=== PATIENT | female | born 2000 | race American Indian/Alaskan Native ===

== ENCOUNTER 2018-08-30 21:36 | Emergency (ER) | payer MEDICAID, SELFPAY ==
[2018-08-30 21:49] VITALS: BP 111/67; PULSE 89; RESP 20; TEMP 37.1; O2SAT 98; BMI 26.9
--- NOTE | 2018-08-30 21:55 | DI.RAD.S_ITS ---
PROCEDURE: XR WRIST LT MIN 3V INDICATIONS: left wrist pain TECHNIQUE: 4 views of the wrist were acquired. COMPARISON: None. FINDINGS: Bones: No fractures or dislocations. No suspicious bony lesions. Scaphoid view: Scaphoid is intact. Soft tissues: No suspicious soft tissue calcifications. IMPRESSION: No fracture or dislocation. Dictated by: Johnna Dominguez M.D. on 08/31/2018 at 9:47 Approved by: Johnna Dominguez M.D. on 08/31/2018 at 9:48
--- NOTE | 2018-08-30 23:03 | ED.UPPEXIN ---
HPI - Extremity Injury (Upper) General Chief Complaint: Extremity Injury, Upper Stated Complaint: LEFT WRIST INJURY Time Seen by Provider: 08/30/18 22:58 Source: patient Mode of arrival: ambulatory Limitations: no limitations History of Present Illness HPI narrative: patient is a 18-year-old female who presents with left wrist pain. She has numbness and tingling in her index and middle finger. She says 2 weeks ago she was lifting a table it fell she tried to catch it and since then she has been having pain. It hurts every time she flex or extend at the wrist. Mostly flexion. complaint: injury to: left and wrist Related Data Allergies Allergy/AdvReac Type Severity Reaction Status Date / Time INGREDIENT: NO KNOWN - NO Allergy Unknown Uncoded 11/18/17 11:45 KNOWN DRUG ALLERGY Review of Systems Review of Systems GENERAL: Denies chills,fever HEENT: Denies throat pain RESPIRATORY: Denies dyspnea, cough, wheezing CARDIOVASCULAR: Denies chest pain, palpitations GASTROINTESTINAL: Denies nausea, vomiting MUSCULOSKELETAL: See HPI SKIN: No rash, no laceration, no pruritus NEUROLOGIC: Denies weakness, dizziness, headache, numbness 8 point review of systems is negative except for those stated above and HPI [facility] Medical History Healthy female (Acute) Social History Smoking Status: Never smoker Exam Initial Vital Signs Initial Vital Signs: Vital Signs Temperature 98.7 F 08/30/18 21:49 Pulse Rate 89 08/30/18 21:49 Respiratory Rate 20 08/30/18 21:49 Blood Pressure 111/67 08/30/18 21:49 Pulse Oximetry 98 08/30/18 21:49 GENERAL: Well-appearing, well-nourished and in no acute distress. CARDIOVASCULAR: peripheral pulses in tact, cap refill <2 sec RESPIRATORY: No respiratory distress, speaks in full sentences without difficulty EXTREMITIES: Normal range of motion, no clubbing or edema. Neurovascularly intact left wrist: Has a positive Phalen's and Tinel's sign. His mild swelling no erythema neurovascularly intact NEUROLOGICAL: Cranial nerves II through XII grossly intact. Normal gait and speech. SKIN: Warm, dry, no petechiae, no rashes or lesions. Course Orders Ordered: ED Orders 08/30/18 21:55 XR wrist LT min 3V Stat Vital Signs - 8 hr 08/30/18 21:49 08/30/18 23:24 Temperature 98.7 F 98.3 F Pulse Rate 89 80 Respiratory Rate 20 16 Blood Pressure 111/67 Blood Pressure [Left Arm] 107/64 Pulse Oximetry 98 100 MDM - Extremity Injury (Upper) Imaging Data wrist left: Attestation: I personally reviewed and interpreted this imaging study as follows: My impression: the no acute process MDM Narrative Medical decision making narrative: Patient is given a left Velcro wrist splint. The signs and symptoms consistent carpal tunnel. Discharge Plan Departure Patient Disposition: Home Clinical Impression: Acute carpal tunnel syndrome of left wrist Discharge Date/Time: 08/30/18 23:32 Interventions: ED Discharge Assessment Last Done: 08/30/18 23:32 Instructions: Carpal Tunnel Syndrome Activity Restrictions/Additional Instructions: *You have been diagnosed with carpal tunnel *What to do: wear a wrist splint while active and while sleeping *Continue to take medications as directed ibuprofen 600 mg every 6 hr if needed for pain *Follow up with your primary care provider in 2-3 days *Return to ER if you should have weakness, increased pain or any new, worsening or concerning symptoms
[2018-08-30 23:24] VITALS: BP 107/64; PULSE 80; RESP 16; TEMP 36.8; O2SAT 100
== END 2018-08-30 23:32 | disposition home or self-care (01) ==
PROVIDERS: Emergency Provider Emergency Medicine; Family Provider Family Medicine; PCP Family Medicine
DX: G56.02 Carpal tunnel syndrome, left upper limb (principal)
CPT/HCPCS: 29260; 73110; 99282; 99283

== ENCOUNTER → 2022-10-14 18:29 | Outpatient (CLI) | payer MEDICAID, SELFPAY ==
--- NOTE | 2022-10-14 18:32 | DI.RAD.S_ITS ---
PROCEDURE: XR HAND LT MIN 3V INDICATIONS: Left hand pain TECHNIQUE: 3 views of the hand(s) acquired. COMPARISON: None. FINDINGS: Joint space maintained. No degenerative arthritic features. No fracture or dislocation. Soft tissues normal. IMPRESSION: No acute finding or significant degenerative changes. Dictated by: Minh Howell M.D. on 10/15/2022 at 11:30 Approved by: Minh Howell M.D. on 10/15/2022 at 11:31
== END ==
PROVIDERS: PCP Registered Nurse; Referring Provider Registered Nurse; Visit Provider Registered Nurse
DX: M79.642 Pain in left hand (principal)
CPT/HCPCS: 73130

== ENCOUNTER 2023-06-30 15:43 | Emergency (ER) | payer MEDICAID, SELFPAY ==
[2023-06-30 16:11] VITALS: BP 124/59; PULSE 96; RESP 16; TEMP 37.4; O2SAT 99; BMI 30.1
== END 2023-06-30 18:52 | disposition left against medical advice (07) ==
PROVIDERS: Emergency Provider Emergency Medicine; PCP Registered Nurse
DX: H66.92 Otitis media, unspecified, left ear (principal)
CPT/HCPCS: 99281

== ENCOUNTER 2024-03-26 00:52 | Emergency (ER) | payer MEDICAID, SELFPAY ==
[2024-03-26 01:04] VITALS: BP 123/64; PULSE 98; RESP 18; TEMP 36.7; O2SAT 98; BMI 30.1
[2024-03-26] MEDS: DEXAMETHASONE 10 MG/ML VIAL PO (01:25)
[2024-03-26 01:34] LABS: Strep Grp A by PCR Rapid Negative (Negative)
[2024-03-26] MEDS: ONDANSETRON 4 MG/2 ML INJ IV (02:17)
[2024-03-26] MEDS: SODIUM CHLORIDE 0.9% 1,000 ML 1000 ML IV (02:17)
[2024-03-26] MEDS: HYDROMORPHONE 0.5 MG INJ IV (02:17)
[2024-03-26 02:19] LABS: Add Manual Diff / Slide Review NO; Basophils Absolute Auto 0 /uL (0-100); Basophils Percent Auto 0.3 % (0-2); Eosinophils Absolute Auto 200 /uL (0-450); Eosinophils Percent Auto 2.1 % (2-4); Hematocrit 38.2 % (36-46); Hemoglobin 12.7 g/dL (12.0-16.0); Lymphocytes Absolute Auto 1500 /uL (1100-4500); Lymphocytes Percent Auto 14.6 % (25-40); Mean Corpuscular HGB Conc 33.2 % (30-36); Mean Corpuscular Hemoglobin 25.7 PG (26-34); Mean Corpuscular Volume 77.3 fL (80-100); Monocytes Absolute Auto 800 /uL (0-900); Neutrophils Absolute Auto 7400 /uL (1500-7000); Platelet Count 340 X10^3/uL (150-400); Red Blood Cell Count 4.95 X10^6/uL (4.0-5.2); Red Cell Distribution Width 14.9 % (11.6-14.8); White Blood Cell Count 9.9 X10^3/uL (4.5-11.0)
[2024-03-26 02:21] LABS: Monotest Negative (Negative)
[2024-03-26 02:30] LABS: Alanine Aminotransferase 21 IU/L (<35); Albumin Globulin Ratio 1.1 (1.0-2.8); Alkaline Phosphatase 58 U/L (38-126); Aspartate Aminotransferase 25 IU/L (14-36); BUN Creatinine Ratio 15.4 (6-22); Bilirubin Total 0.4 mg/dL (0.2-1.3); Blood Urea Nitrogen 10 mg/dL (7-17); Calcium 8.6 mg/dL (8.4-10.2); Carbon Dioxide 25 mmol/L (22-32); Chloride 105 mmol/L (98-107); Estimated Glomerular Filt Rate > 60 mL/min (>60); Globulin 3.6 g/dL (1.7-4.1); Glucose 118 mg/dL (70-100); HEMOLYSIS < 15 (0-50); Potassium 3.6 mmol/L (3.4-5.1); Sodium 137 mmol/L (137-145); Total Protein 7.6 g/dL (6.3-8.2)
[2024-03-26 03:12] VITALS: PULSE 84; O2SAT 96
--- NOTE | 2024-03-26 03:17 | ED.GENADULT ---
HPI - General Adult General Chief complaint: Dental/Oral Stated complaint: SWOLLEN TONSILS, VERY PAINFUL Time Seen by Provider: 03/26/24 01:03 Source: patient Mode of arrival: Ambulatory History of Present Illness HPI narrative: Otherwise healthy 23-year-old woman with no significant medical history presents complaining of severe throat pain present for 48 hours over the last 24 hours so bad that she is having difficulty swallowing. She is maintaining her airway. Slight headaches, nausea no diarrhea. No chest pain, palpitations. Related Data Home Medications Medication Instructions Recorded Confirmed No Known Home Medications 06/30/23 06/30/23 Allergies Allergy/AdvReac Type Severity Reaction Status Date / Time No Known Drug Allergies Allergy Verified 06/30/23 16:14 Review of Systems Review of Systems Narrative: Pertinent positive and negative findings as per HPI Patient History Medical History Healthy female Social History Smoking Status: Never smoker Smoking Status: Never smoker alcohol intake frequency: 0-2 drinks per day Substance Use Type: does not use Exam Initial Vital Signs Initial Vital Signs: Vital Signs Temperature 98.1 F 03/26/24 01:04 Pulse Rate 98 H 03/26/24 01:04 Respiratory Rate 18 03/26/24 01:04 Blood Pressure 123/64 03/26/24 01:04 Pulse Oximetry 98 03/26/24 01:04 Oxygen Delivery Method Room Air 03/26/24 01:04 General: Appears uncomfortable, alert, oriented, appropriate and able to come platelet cooperate with exam and history HEENT: Moist mucous membranes, normal sclera with reactive pupils, significantly enlarged erythematous tonsils with minor exudate. Significant bilateral cervical adenopathy. Throat is quite hoarse Respiratory: Lungs are clear to auscultation, no wheezing no rales no rhonchi. Full and symmetrical air movement Cardiac: Mild tachycardic otherwise Regular rate and rhythm no murmurs no bruits Abdomen: Soft, mild mid abdominal tenderness without rebound or guarding. No flank pain Skin: Warm and dry, no rashes Neurologic: Grossly neurologically intact with no obvious asymmetries or abnormalities Extremities: No trauma, well perfused Psych: Cooperative, appropriate insight and affect Course Orders Ordered: ED Orders 03/26/24 01:21 Strep Grp A by PCR Rapid Stat 03/26/24 02:10 Complete Blood Count AUTO DIFF Stat Comprehensive Metabolic Panel Stat Monotest Stat Hydromorphone HCl (Hydromorphone 0.5 Mg Inj) 0.5 mg IV Q15MIN PRN PRN Reason: Pain, Last Admin: 03/26/24 02:17 Dose: 0.5 mg Documented By: MARK Discontinued Medications Dexamethasone (Dexamethasone 10 Mg/Ml Vial) 10 mg PO NOW ONE Stop: 03/26/24 01:18 Last Admin: 03/26/24 01:25 Dose: 10 mg Documented By: ENEIDA Sodium Chloride (Normal Saline 0.9%) 1,000 mls @ 1,000 mls/hr IV BOLUS ONE Stop: 03/26/24 02:54 Last Admin: 03/26/24 02:17 Dose: 1,000 mls/hr Documented By: MARK Ondansetron HCl (Ondansetron 4 Mg/2 Ml Inj) 4 mg IV NOW ONE Stop: 03/26/24 01:56 Last Admin: 03/26/24 02:17 Dose: 4 mg Documented By: MARK Vital Signs Vital signs: Vital Signs - 8 hr 03/26/24 01:04 Temperature 98.1 F Pulse Rate 98 H Respiratory Rate 18 Blood Pressure 123/64 Pulse Oximetry 98 Oxygen Delivery Method Room Air Medical Decision Making Lab Data 03/26/24 02:10 03/26/24 02:10 Labs: Lab Results 03/26/24 03/26/24 Range/Units 01:21 02:10 WBC 9.9 (4.5-11.0) X10^3/uL RBC 4.95 (4.0-5.2) X10^6/uL Hgb 12.7 (12.0-16.0) g/dL Hct 38.2 (36-46) % MCV 77.3 L (80-100) fL MCH 25.7 L (26-34) PG MCHC 33.2 (30-36) % RDW 14.9 H (11.6-14.8) % Plt Count 340 (150-400) X10^3/uL Neut % (Auto) 75.0 (50-75) % Lymph % (Auto) 14.6 L (25-40) % [place] % (Auto) 8.0 (3-14) % Eos % (Auto) 2.1 (2-4) % Baso % (Auto) 0.3 (0-2) % Neut # (Auto) 7400 H (4917-5925) /uL Lymph # (Auto) 1500 (2019-4221) /uL [place] # (Auto) 800 (0-900) /uL Eos # (Auto) 200 (0-450) /uL Baso # (Auto) 0 (0-100) /uL Sodium 137 (137-145) mmol/L Potassium 3.6 (3.4-5.1) mmol/L Chloride 105 (98-107) mmol/L Carbon Dioxide 25 (22-32) mmol/L BUN 10 (7-17) mg/dL Creatinine 0.65 (0.52-1.04) mg/dL Estimated GFR > 60 (>60) mL/min BUN/Creatinine Ratio 15.4 (6-22) Glucose 118 H (70-100) mg/dL Calcium 8.6 (8.4-10.2) mg/dL Total Bilirubin 0.4 (0.2-1.3) mg/dL AST 25 (14-36) IU/L ALT 21 (<35) IU/L Alkaline Phosphatase 58 (38-126) U/L Total Protein 7.6 (6.3-8.2) g/dL Albumin 4.0 (3.5-5.0) g/dL Globulin 3.6 (1.7-4.1) g/dL Albumin/Globulin Ratio 1.1 (1.0-2.8) Monoscreen Negative (Negative) Group A Strep (PCR) Negative (Negative) MDM Narrative Medical decision making narrative: CC: Severe sore throat Complicating co-morbidities: None Data collected from: patient Differential considered: Strep throat, mono, other viral syndrome with upper pharyngeal symptoms Exam documented above, pertinent findings include: Significantly enlarged tonsils minor exudate, impressive cervical adenopathy, hoarse voice, lungs are essentially clear abdomen with minor tenderness without rebound or guarding Lab Test results independently reviewed as above. Pertinent findings: CBC is unremarkable with no suggestion of severe bacterial infection. Chemistries are reassuring, normal renal function, normal liver studies Strep screen is negative, Monospot is negative Treatments: Fluids, oral dexamethasone for inflammation and pain, Zofran, half a mg of Dilaudid, a single Percocet Discussion: 23-year-old woman with significant presumably viral pharyngitis. No evidence of bacterial infection. Antibiotics were not administered. No evidence peritonsillar abscess. She has given a dose of dexamethasone to help with swelling and pain. The fluids nausea medication and Dilaudid did help some with the pain, she is able to swallow. She has given a Percocet prior to discharge and Percocet discharge back to help over the next 24 hours. We talked about ibuprofen and Tylenol. Talked about symptomatic treatment for viral infections and reasons to return to the emergency department. At this point there is no indication for additional imaging studies, lab work or hospitalization. Questions are answered she is safe for discharge Discharge Plan Departure Patient Disposition: Home Clinical Impression: Acute viral pharyngitis Instructions: DI for Viral Pharyngitis Activity Restrictions/Additional Instructions: Thank you for coming in today You do not have strep throat, there was no evidence of significant bacterial infection or sepsis, antibiotics are not going to be helpful today. You do clearly have a significant viral infection that is causing rather impressive swelling of your tonsils with swollen lymph nodes trying to fight off this virus. I have given you fluids, a dose of steroid to help with the tonsillar pain and swelling, narcotic pain medication to help with the direct pain and nausea medication as well. Using 400 mg of ibuprofen (2 [id number] pills) and 1 Tylenol every 6 hours can be very helpful in controlling pain. For severe pain using 400 mg of ibuprofen and 1 Percocet can be helpful. Percocet is a narcotic and will cause constipation. Please consider using a stool softener and making sure that you are staying as hydrated as possible If you find that you are getting worse or having new symptoms please return to the ER Prescriptions: No Action No Known Home Medications Referrals: Stephani Porter ARNP [Primary Care Provider] - Stand Alone Forms: Patient Portal/API
[2024-03-26 03:30] VITALS: PULSE 87; O2SAT 96
[2024-03-26] MEDS: OXYCODONE/APAP 5/325 PREPACK 1 BOTTLE MISC (03:44)
[2024-03-26] MEDS: OXYCODONE/ACETAMINOPHEN 5/325 TABLET 1 TAB PO (03:44)
[2024-03-26 03:51] VITALS: BP 124/60
== END 2024-03-26 03:52 | disposition home or self-care (01) ==
PROVIDERS: Emergency Provider Emergency Medicine; PCP Registered Nurse
DX: J02.9 Acute pharyngitis, unspecified (principal)
CPT/HCPCS: 36415; 80053; 85025; 86318; 87651; 96361; 96374; 96375; 99284; J1100; J1170; J2405

== ENCOUNTER 2024-03-27 17:55 | Emergency (ER) | payer SELFPAY ==
[2024-03-27] VITALS (8 sets, daily range): BP systolic 109–123; BP diastolic 57–75; PULSE 81–101; RESP 14–21; TEMP 37.3; O2SAT 97–100; BMI 30.1
--- NOTE | 2024-03-27 18:48 | ED.RECABL ---
HPI - Recheck/Abnormal Lab/Rx General Chief Complaint: Recheck/Abnormal Lab/Rx Stated Complaint: Returning; Swollen Tonsils, Not eating Time Seen by Provider: 03/27/24 18:48 Source: patient Mode of arrival: Ambulatory History of Present Illness HPI narrative: Patient is a 23-year-old healthy female who presents today with sore throat. She has had a sore throat for the last 3 to 4 days. She was seen evaluated clinic her rapid strep was negative they did not start her on any sort of antibiotics. Today she feels like her voice is muffled and she has having a difficult time swallowing although she is currently managing her own secretions. No fever or chills. She says it hurts to swallow has not taken anything for pain recently Related Data Previous Rx's Medication Instructions Recorded amoxicillin 875 mg-potassium 1 tab PO BID #20 tabs 03/27/24 clavulanate 125 mg tablet prednisone 20 mg tablet 40 mg (2 x 20 mg) PO DAILY #10 tabs 03/27/24 Allergies Allergy/AdvReac Type Severity Reaction Status Date / Time No Known Drug Allergies Allergy Verified 06/30/23 16:14 Patient History Medical History Healthy female Social History Smoking Status: Never smoker Smoking Status: Never smoker alcohol intake frequency: 0-2 drinks per day Substance Use Type: does not use Exam Initial Vital Signs Initial Vital Signs: Vital Signs Temperature 99.2 F 03/27/24 18:25 Pulse Rate 101 H 03/27/24 18:25 Respiratory Rate 16 03/27/24 18:25 Blood Pressure 123/57 L 03/27/24 18:25 Pulse Oximetry 98 03/27/24 18:25 Oxygen Delivery Method Room Air 03/27/24 18:25 GENERAL: Alert pleasant 23-year-old female and in no acute distress. HEENT: Head atraumatic,EOMI, pupils reactive, face symmetric, moist mucous membranes PHARYNX: Right hard palate swelling significantly enlarged tonsils no significant deviation of uvula she is managing her own secretions she does have a slightly muffled voice CARDIOVASCULAR: Regular rate and rhythm without murmurs, rubs or gallops. RESPIRATORY: Breath sounds equal bilaterally, no wheezes rales or rhonchi. No stridor ABDOMEN: Soft, nontender. Normoactive bowel sounds all 4 quadrants. No guarding or rebound. EXTREMITIES: Normal range of motion, no clubbing or edema. Neurovascularly intact NEUROLOGICAL: Alert and oriented x4.Normal gait and speech. SKIN: Warm, dry, no laceration, no petechiae, no rashes or lesions. Course Orders Ordered: ED Orders 03/27/24 19:05 Blood Culture Stat Discontinued Medications Sodium Chloride (Normal Saline 0.9%) 1,000 mls @ 1,000 mls/hr IV BOLUS ONE Stop: 03/27/24 19:32 Last Infusion: 03/27/24 20:59 Dose: Infused Documented By: Admin: 03/27/24 19:09 Dose: 1,000 mls/hr Documented By: VIPIN Sodium Chloride (Normal Saline 0.9%) 1,000 mls @ 1,000 mls/hr IV BOLUS ONE Stop: 03/27/24 19:47 Last Infusion: 03/27/24 21:34 Dose: Infused Documented By: Admin: 03/27/24 20:18 Dose: 1,000 mls/hr Documented By: MARK Ampicillin Sodium/Sulbactam (Sodium 3 gm/ Sodium Chloride) 100 mls @ 200 mls/hr IV NOW ONE Stop: 03/27/24 18:49 Last Infusion: 03/27/24 20:16 Dose: Infused Documented By: Admin: 03/27/24 19:31 Dose: 200 mls/hr Documented By: VIPIN Dexamethasone 20 mg/ Sodium (Chloride) 52 mls @ 208 mls/hr IV NOW ONE Stop: 03/27/24 18:49 Last Infusion: 03/27/24 19:30 Dose: Infused Documented By: Admin: 03/27/24 19:11 Dose: 208 mls/hr Documented By: VIPIN Acetaminophen (Ofirmev) 1,000 mg in 100 mls @ 400 mls/hr IV NOW ONE Stop: 03/27/24 19:10 Last Infusion: 03/27/24 20:46 Dose: Infused Documented By: Admin: 03/27/24 20:17 Dose: 400 mls/hr Documented By: MARK Ondansetron HCl (Ondansetron 4 Mg/2 Ml Inj) 4 mg IV NOW PRN PRN Reason: Nausea And Vomiting Last Admin: 03/27/24 19:09 Dose: 4 mg Documented By: RB Ondansetron HCl (Ondansetron 4 Mg Odt) 4 mg SL NOW PRN PRN Reason: Nausea And Vomiting Vital Signs Vital signs: Vital Signs - 8 hr 03/27/24 20:30 03/27/24 20:30 03/27/24 21:00 Pulse Rate 81 86 Respiratory Rate 17 21 Blood Pressure 109/63 Pulse Oximetry 99 97 Oxygen Delivery Method Room Air 03/27/24 21:00 03/27/24 22:04 03/27/24 22:14 Pulse Rate 85 100 H Respiratory Rate 18 14 Blood Pressure 117/71 109/74 115/75 Pulse Oximetry 97 100 Oxygen Delivery Method Room Air Room Air MDM - Recheck/Abnormal Lab/Rx Lab Data 03/27/24 18:45 03/27/24 18:45 Labs: Lab Results 03/27/24 03/27/24 Range/Units 18:45 18:49 WBC 13.6 H (4.5-11.0) X10^3/uL RBC 4.87 (4.0-5.2) X10^6/uL Hgb 12.5 (12.0-16.0) g/dL Hct 37.8 (36-46) % MCV 77.7 L (80-100) fL MCH 25.8 L (26-34) PG MCHC 33.2 (30-36) % RDW 15.0 H (11.6-14.8) % Plt Count 332 (150-400) X10^3/uL Neut % (Auto) 76.7 H (50-75) % Lymph % (Auto) 13.5 L (25-40) % [place] % (Auto) 8.7 (3-14) % Eos % (Auto) 0.2 L (2-4) % Baso % (Auto) 0.9 (0-2) % Neut # (Auto) 45773 H (4323-6764) /uL Lymph # (Auto) 1800 (1080-8852) /uL [place] # (Auto) 1200 H (0-900) /uL Eos # (Auto) 0 (0-450) /uL Baso # (Auto) 100 (0-100) /uL PT 12.5 (9.4-12.5) SECONDS INR 1.1 (0.9-1.3) APTT 33 (25.1-36.5) SECONDS Sodium 138 (137-145) mmol/L Potassium 3.5 (3.4-5.1) mmol/L Chloride 105 (98-107) mmol/L Carbon Dioxide 25 (22-32) mmol/L BUN 9 (7-17) mg/dL Creatinine 0.64 (0.52-1.04) mg/dL Estimated GFR > 60 (>60) mL/min BUN/Creatinine Ratio 14.1 (6-22) Glucose 97 (70-100) mg/dL Lactate 0.9 (0.7-2.1) mmol/L Calcium 8.5 (8.4-10.2) mg/dL Total Bilirubin 0.7 (0.2-1.3) mg/dL AST 20 (14-36) IU/L ALT 19 (<35) IU/L Alkaline Phosphatase 68 (38-126) U/L Total Protein 7.6 (6.3-8.2) g/dL Albumin 4.1 (3.5-5.0) g/dL Globulin 3.5 (1.7-4.1) g/dL Albumin/Globulin Ratio 1.2 (1.0-2.8) Lipase 54 (23-300) U/L Procalcitonin 0.052 (<0.5) ng/mL Ur Bilirubin Confirm Negative (Negative) Urine RBC 1-5/hpf (0-5/HPF) Urine WBC 5-10/hpf H (0-5/HPF) Ur Squamous Epith Cells 10-30 /hpf H (0-5/HPF) Amorphous Sediment 1+ Urine Bacteria Few (2-10) H (None) Ur Culture Indicated? Specimen cultured Vol Urine Centrifuged 6 Point of Care Testing Test Results Negative Urine Dip Bedside Urine Glucose Negative Bedside Urine Bilirubin + 1 Bedside Urine Ketone ++ 40 Urine Specific [place] 1.015 Bedside Urine Occult Blood +/- Bedside Urine pH 6.0 Bedside Urine Protein - Negative Bedside Urine Urobilinogen +/- 1mg Bedside Urine Nitrite - Negative Bedside Urine Leukocytes - Negative Esterase MAKAYLA Narrative Medical decision making narrative: MAKAYLA CC: Sore throat difficulty swallowing Complicating co-morbidities: Healthy non Medical records reviewed: None Differential considered: Peritonsillar abscess, retropharyngeal abscess stress Exam documented above, pertinent findings include: Enlarged tonsils some right peritonsillar swelling no obvious uvular deviation Lab Test results independently reviewed as above. Pertinent findings: Negative strep negative mono WBC 13.6 hemoglobin 12.5 hematocrit 37.8 platelets 332 Sodium 138 potassium 3.5 chloride 105 carbon dioxide 25 BUN 9 creatinine 0.6 glucose 97 lactate 0.9 bili 0.7 AST 20 ALT 19 procalcitonin 0.5 Imaging studies independently reviewed: None Consultations: none Treatments: 2 L of IV fluids dexamethasone Unasyn Re-evaluations: Patient is resting comfortably managing own secretions no acute airway compromise Discussion: Patient presents with sore throat ongoing for last couple of days muffled voice concern for peritonsillar abscess. She is managing her secretions strep is negative but is treated with Unasyn regardless. She is able to lay flat overall appears comfortable. Encouraged hydration and steroid it is along with the ENT follow-up Discharge Plan Departure Patient Disposition: Home Clinical Impression: Abscess, peritonsillar Instructions: DI for Peritonsillar Abscess -- Adult Activity Restrictions/Additional Instructions: *You have been diagnosed with peritonsillar abscess *What to do: At this time please stay hydrated drink fluids *Continue to take medications as directed--> [facility] Prednisone 40 mg once a day for 5 days Augmentin 875 mg twice a day for 10 days *Follow up with your primary care provider in 2-3 days or call [phone] *Return to ER if you should have increasing pain swelling difficulty swallowing or any new, worsening or concerning symptoms Prescriptions: New prednisone 20 mg tablet 40 mg PO DAILY Qty: 10 0RF amoxicillin-pot clavulanate 875-125 mg tablet 1 tab PO BID Qty: 20 0RF Referrals: Erasmo Irizarry MD [Physician] - Stephani Porter ARNP [Primary Care Provider] - Stand Alone Forms: Patient Portal/API, Work Release Note
[2024-03-27 18:56] LABS: Add Manual Diff / Slide Review NO; Basophils Absolute Auto 100 /uL (0-100); Basophils Percent Auto 0.9 % (0-2); Eosinophils Absolute Auto 0 /uL (0-450); Eosinophils Percent Auto 0.2 % (2-4); Hematocrit 37.8 % (36-46); Hemoglobin 12.5 g/dL (12.0-16.0); Lymphocytes Absolute Auto 1800 /uL (1100-4500); Lymphocytes Percent Auto 13.5 % (25-40); Mean Corpuscular HGB Conc 33.2 % (30-36); Mean Corpuscular Hemoglobin 25.8 PG (26-34); Mean Corpuscular Volume 77.7 fL (80-100); Monocytes Absolute Auto 1200 /uL (0-900); Monocytes Percent Auto 8.7 % (3-14); Neutrophils Absolute Auto 10500 /uL (1500-7000); Neutrophils Percent Auto 76.7 % (50-75); Platelet Count 332 X10^3/uL (150-400); Red Blood Cell Count 4.87 X10^6/uL (4.0-5.2); White Blood Cell Count 13.6 X10^3/uL (4.5-11.0)
[2024-03-27 19:04] LABS: INR 1.1 (0.9-1.3); Prothrombin Time 12.5 SECONDS (9.4-12.5)
[2024-03-27 19:07] LABS: PTT Partial Thromboplastin Tim 33 SECONDS (25.1-36.5)
[2024-03-27 19:08] LABS: Lactate (Lactic Acid) 0.9 mmol/L (0.7-2.1)
[2024-03-27] MEDS: ONDANSETRON 4 MG/2 ML INJ IV (19:09)
[2024-03-27] MEDS: SODIUM CHLORIDE 0.9% 1,000 ML 1000 ML IV ×2 (19:09→20:18)
[2024-03-27 19:10] LABS: Alanine Aminotransferase 19 IU/L (<35); Albumin 4.1 g/dL (3.5-5.0); Albumin Globulin Ratio 1.2 (1.0-2.8); Alkaline Phosphatase 68 U/L (38-126); Aspartate Aminotransferase 20 IU/L (14-36); BUN Creatinine Ratio 14.1 (6-22); Bilirubin Total 0.7 mg/dL (0.2-1.3); Blood Urea Nitrogen 9 mg/dL (7-17); Calcium 8.5 mg/dL (8.4-10.2); Carbon Dioxide 25 mmol/L (22-32); Chloride 105 mmol/L (98-107); Estimated Glomerular Filt Rate > 60 mL/min (>60); Globulin 3.5 g/dL (1.7-4.1); Glucose 97 mg/dL (70-100); HEMOLYSIS < 15 (0-50); Lipase 54 U/L (23-300); Potassium 3.5 mmol/L (3.4-5.1); Sodium 138 mmol/L (137-145); Total Protein 7.6 g/dL (6.3-8.2)
[2024-03-27] MEDS: dexAMETHasone 20 MG in SODIUM CHLORIDE 0.9% 50 ML 208 MG IV (19:11)
[2024-03-27 19:26] LABS: Procalcitonin 0.052 ng/mL (<0.5)
[2024-03-27] MEDS: AMPICILLIN/SULBACTAM 3 GM 3 GM in SODIUM CHLORIDE 0.9% 100 ML IV (19:31)
[2024-03-27 19:46] LABS: Ictotest Urine Negative (Negative); Urine Volume 6
[2024-03-27 19:47] LABS: Amorphous Sediment Urine 1+; Bacteria Urine Few (2-10); Culture Indicated Urine Specimen Cultured; RBC Urine 1-5/HPF (0-5/HPF); Squamous Epithelial Cell Urine 10-30 /HPF (0-5/HPF); WBC Urine 5-10/HPF (0-5/HPF)
[2024-03-27] MEDS: ACETAMINOPHEN IV 1,000 MG/100 ML VIAL 400 MG IV (20:17)
== END 2024-03-27 22:16 | disposition home or self-care (01) ==
PROVIDERS: Emergency Provider Emergency Medicine; PCP Registered Nurse
DX: J36 Peritonsillar abscess (principal)
CPT/HCPCS: 36415; 80053; 81003; 81015; 81025; 83605; 83690; 84145; 85025; 85610; 85730; 87040; 87086; 87147; 96365; 96367; 96368; 96375; 99284; J0136; J0295; J1100; J2405

== ENCOUNTER → 2025-01-24 10:19 | Outpatient (CLI) | payer MEDICAID, SELFPAY ==
[2025-01-24 11:47] LABS: Hematocrit 33.9 % (36-46)
[2025-01-24 11:57] LABS: GTT (PREG) 1 Hour PP 50gm Dose 110 mg/dL (76-139)
== END ==
PROVIDERS: Student in an Organized Health Care Education/Training Program; PCP Registered Nurse; Referring Provider Registered Nurse; Visit Provider Registered Nurse
DX: O09.33 Supervision of pregnancy with insufficient antenatal care, third trimester (principal)
CPT/HCPCS: 36415; 82950; 85014; 85018; 86850; 86900; 86901

== ENCOUNTER → 2025-01-31 14:31 | Outpatient (CLI) | payer MEDICAID, SELFPAY ==
[2025-02-01 12:42] LABS: Strep Grp B PCR NEG for Grp B Strep
== END ==
PROVIDERS: PCP Registered Nurse; Visit Provider Student in an Organized Health Care Education/Training Program
DX: Z36.85 Encounter for antenatal screening for Streptococcus B (principal)
CPT/HCPCS: 87653

== ENCOUNTER 2025-02-06 15:39 | Inpatient (IN) | payer MEDICAID, SELFPAY ==
--- NOTE | 2025-02-06 16:33 | P.HPOB_ITS ---
OB HPI Date/Time Date of admission: 02/06/25 Date Patient Seen: 02/06/25 Time Patient Seen: 17:00 History of Present Condition Chief complaint: leaking CRESENCIO Calculator 2 Estimated Delivery Date Method Current WG Current Estimate 02/28/25 Ultrasound #1 36w 6d Estimated Gestational Age (weeks): 36w6d : 1 Narrative: 24yo G1 at 36w6d by 30wk US presents to triage with c/o leakage of clear fluid. Patient states LOF started at approximately midnight (16h prior to presentation). She states fluid is clear. She has had some intermittent cramping but nothing that feels very painful. +FM, denies VB. GBS negative. course notable for late entry to PNC at 32wga, dates by 30wk US with reported regular bleeding throughout which patient believed was her menses. Office US at 35wga ([facility]) noted cephalic presentation, adequate SIGRID with EFW 24th%; pt has had DI-FAS ordered but has not completed due to scheduling difficulties. PMHx non-contributory. FOB not involved, pt family present and supportive care: initiated at week # (30) and number of visits (3) Dating criteria OB: based on 3rd trimester US only Ultrasounds: other (no formal anatomy survey completed ) Obstetrical complications: other (insufficient PNC) Medical complications OB: none Preadmission Labs Last OB Lab Results: 2 Blood Type O Positive Today, 16:59 Antibody Screen Negative Today, 16:59 Hct, (36-46) 34.4 % L Today, 16:59 Hgb, (12.0-16.0) 11.2 g/dL L Today, 16:59 Glucose 1 Hr 50 gm, (76-139) 110 mg/dL 01/24/25, 1 1:30 Group B Strep (PCR) Neg for grp b strep 01/31/25, 14:30 Evaluation Evaluation Baseline heart rate: 155 Variability: Moderate (6-25) monitor accelerations: Present Monitor Decelerations: Absent Uterine Contraction Intensity: Mild Category of Tracing: Reactive Status: Category l Dilation (cm): 2 Effacement (%): 0 Dilation: 1-2 cm Effacement: 0-30% station: -4 Position of cervix: mid Consistency: soft Wolfe score: 4 Non-invasive Membranes Rupture Test: positive [facility] Medical History (Updated 01/24/25 @ 11:02 by Shell Ferris DO) Healthy female Surgical History (Updated 01/19/25 @ 08:06 by Nusrat Rider RN) [place] teeth extracted Social History marital status: unmarried,single household members: family (parents, siblings) lives independently: No caregiver/support person: No housing: house pets and animals: No education level: high school occupational status: employed ([employer] child[employer]) current occupational exposures/hazards: No special mia needs: No travel history: over 6 months ago seatbelt use: always water heater temp set < 120 deg: Yes working smoke detector in home: Yes fire extinguisher in home: Yes carbon monox detector in home: Yes firearms in home: No do you feel safe at home: Yes Smoking Status: Current some day smoker second hand exposure: Yes (parents smoke) alcohol intake: former (occasional single drink or less; last was 08/2025) substance use type: does not use during the past year weight has: increased > 10 lbs well-balanced diet: rarely or never daily servings fruits/ve-4 (~2) caffeine: No Type(s) of exercise: walking and other (active w/ kids at work) Meds Home Medications and Allergies Home Medications ?Medication ?Instructions ?Recorded ?Confirmed ?Type vitamin-ferrous sulfate tab PO 01/19/2501/19 History 27 mg iron-folic acid 0.8 mg tablet Allergies Allergy/AdvReac Type Severity Reaction Status Date / Time No Known Drug Allergies Allergy Verified 02/06/25 18:49 Review of Systems Review of Systems ROS: Yes All systems reviewed with the patient and are negative except as otherwise documented OB Exam HENMT Head: normal to inspection Resp Effort & Inspection: normal respiratory effort and able to speak in complete sentences Cardio Rate: tachycardic GI Inspection: normal to inspection Palpation: Yes soft Other: gravid, cephalic supriya 6-7# External Female Exam: Yes normal external appearance Presentation: vertex Amniotic Fluid: clear and Nitrazine positive Objective Labs 02/06/25 16:59 Assessment and Plan Assessment and Plan Assessment and Plan narrative: 24yo G1 at 36w6d by 30wk US presents with late ROM 16h 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 Late PROM +pooling/+amnisure initial tachycardia as well as maternal tachycardia noted; afebrile, both resolved with gentle IVF bolus GBS neg, monitor closely for s/sx of infection in setting of prolonged rupture pt counseled on and amenable to recommendation for initiation of pitocin in setting of prolonged rupture without s/sx of labor cont CEFM/toco, start IV pitocin and titrate to pattern --> interval SVE 6h thereafter limited PNC, late entry at 30wga, no formal anatomy survey however office assessment wnl with EFW 24th% at 35wga Patient is consented for vaginal delivery, vaginal operative delivery and delivery as well as transfusion of blood products as medically indicated anticipate Time-Based Coding :: [TOTAL MINUTES] spent with patient and on the chart (including review of chart, obtaining history, exam, reviewing outside data, placing orders, documenting exam and treatment plan, and counseling patient) on [DATE].
[2025-02-06] MEDS: LACTATED RINGERS 1,000 ML 100 ML IV ×2 (16:59→23:18)
[2025-02-06] MEDS: OXYTOCIN PREMIX 30 UNIT/500 ML PLAST..BAG IV (17:21)
[2025-02-06 17:22] LABS: Add Manual Diff / Slide Review NO; Hematocrit 34.4 % (36-46); Hemoglobin 11.2 g/dL (12.0-16.0); Lymphocytes Absolute Auto 1300 /uL (1100-4500); Mean Corpuscular HGB Conc 32.6 % (30-36); Mean Corpuscular Hemoglobin 24.7 PG (26-34); Mean Corpuscular Volume 75.7 fL (80-100); Platelet Count 365 X10^3/uL (150-400)
[2025-02-07] MEDS: fentaNYL 100 MCG/2 ML INJ 50 MCG IV (07:22)
[2025-02-07] MEDS: ONDANSETRON 4 MG/2 ML INJ IV (10:37)
--- NOTE | 2025-02-07 13:47 | PM.OBPRVD ---
Labor & Delivery Delivery date: 02/07/25 Delivery Time: 13:04 Cervical ripening method: none Induction method: none Delivery monitor: external FHT and external uterine Route of delivery: Episiotomy description: None L&D Laceration Description: Perineal - 2nd Degree Delivery repair: chromic Estimated blood loss (mL): 200 Anesthesia Type: Local (For repair) Complications: None Narrative: Following a 39 minute 2nd stage, the patient delivered spontaneously over an intact perineum a viable female with Apgars of 8/9, and a weight of 2619 g (5 lb 12.4 oz). The was vigorous at and delayed cord clamping performed. Following delivery, skin to skin contact was initiated immediately. 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 The placenta was then delivered with gentle cord traction and suprapubic countertraction. Intravenous Pitocin was initiated immediately after delivery of the placenta and bleeding was rapidly brought under control. Inspection of the placenta showed that it was intact, with a central insertion of three-vessel cord. Inspection of the perineum showed a second-degree perineal laceration which was then closed under local anesthesia with 2-0 chromic in the usual manner. Following completion of the delivery and repair process, sponge, instrument, and needle counts were noted to be correct. Mother and baby tolerated the delivery process well. [place] Baby 1: Infant gender: Female Presentation: vertex Position: Left Occiput Anterior Placenta delivery description: Spontaneous Cord Vessel Description: 3 Vessels score (1 min): 8 score (5 min): 9 weight: 5 lb 12.383 oz Plan for aftercare: Routine care
[2025-02-07] MEDS: ACETAMINOPHEN 325 MG TABLET 650 MG PO ×2 (14:35→20:46)
[2025-02-07] MEDS: DERMOPLAST SPRAY 20% 60 ML 1 SPRAY TOP (14:35)
[2025-02-07] MEDS: IBUPROFEN 600 MG TABLET PO (18:00)
[2025-02-07] MEDS: DOCUSATE 100 MG CAPSULE PO (20:45)
[2025-02-07] MEDS: LANOLIN OINT 7 GM 1 APPLIC TOP (20:46)
[2025-02-08] MEDS: IBUPROFEN 600 MG TABLET PO (00:38)
[2025-02-08] MEDS: ACETAMINOPHEN 325 MG TABLET 650 MG PO ×3 (03:13→10:00)
[2025-02-08] MEDS: DOCUSATE 100 MG CAPSULE PO (09:59)
--- NOTE | 2025-02-08 12:58 | PM.OBDS.1 ---
Discharge Providers Provider Date of admission: 02/06/25 15:39 Discharge Date: 02/08/25 Primary care physician: LIZZIE Rjaput Consults: 02/07/25 14:22 Consult to Search Strategist Routine Comment: Discharge provider: Eric Shields MD Summary Hospital Course Date Patient Seen: 02/08/25 Time Patient Seen: 12:59 Diagnoses: Intrauterine , 36+ 6 weeks gestational age, delivered by spontaneous vaginal Premature rupture of membranes Prolonged rupture membranes GBS negative Hospital Course: Nakia presented on 02/06/2025 with spontaneous rupture of membranes for at least 16 hours prior presentation. Upon admission patient underwent Pitocin augmentation and at 1:04 p.m. on the afternoon of 02/07/2025, she delivered spontaneously viable male with Apgars 8/9, and a weight of 5 lb 12.4 oz. patient sustained a second-degree perineal laceration at the time of delivery. Following delivery both mother and baby have done well with the mother experiencing prompt return of bowel and bladder function, she is ambulating independently, tolerating a regular diet, and her pain is well controlled with oral pain medications. She will be discharged at this time to home in an afebrile normotensive condition after counseling regarding precautionary symptoms, limitations activity, medications, and plans for follow-up which will be in 6 weeks. Medications at the time of discharge will include resumption of all pre-admission medications and she will use [id number] Tylenol and/or ibuprofen as needed for pain relief. Peripartum Data Infant Delivery Method: Natural Vaginal Laceration Description: Perineal - 2nd Degree Episiotomy description: None Procedures: Spontaneous vaginal delivery with repair of second-degree perineal laceration complications: none 1: Gender: Female Disposition of : home Status at Discharge Cognitive/behavioral status at discharge: oriented Functional status at discharge: independent ambulation Overall status at discharge: patient is progressing back to baseline Time Spent with Patient Time attestation: Total time spent providing and/or coordinating discharge services: 20 minutes Time spent: Less than 30 minutes Objective Labs 02/06/25 16:59 Exam Const General: cooperative and comfortable Nutritional Appearance: average body habitus Orientation: alert and oriented x3 HENMT Head: normal to inspection, atraumatic and abrasion Ears: hearing grossly normal bilaterally Face and sinus: face symmetric Eyes General: appearance normal, both eyes and all related structures Conjunctivae: conjunctivae normal Sclera: sclerae normal EOM: EOM intact bilaterally Neck Neck: normal visual inspection Resp Effort & Inspection: normal respiratory effort and able to speak in complete sentences Auscultation: clear to auscultation bilaterally Cardio Rate: regular rate Rhythm: regular rhythm Heart Sounds: S1 normal, S2 normal and no murmurs GI Inspection: normal to inspection Palpation: soft and no hepatosplenomegaly External Female Exam: other (No significant bleeding noted) Extrem General: no calf tenderness Psych Appearance: grossly normal Mental Status: mental status grossly normal Speech and Movement: speech and movement normal Mood: congruent mood Affect: normal affect Attitude: cooperative Thought Process: normal Thought Content: normal Judgment: judgment good Discharge Plan Discharge Plan Patient Disposition: Home Provider Discharge Comment: Please review the written instructions you received when you were discharged from the hospital. Your follow-up appointment is scheduled for 6 weeks after delivery and we look forward to seeing you then. If however in the meanwhile you have any issues, concerns, or questions, please contact our office either by phone at [phone], or via the patient portal. Discharge orders & Medications Prescriptions: Continued vit-ferrous sulfat-FA 27 mg iron- 0.8 mg tablet PO Follow up/Referrals: Shell Ferris DO [Physician, COMMERCIAL FINANCE MANAGER] Referral Note: Please follow up with Dr. Ferris on March 21 @ 10:30 am for your 6 week visit. Stephani Porter ARNP [Primary Care Provider, Family Practice] Discharge Health Status Multidrug resistant organism: No MDRO Diet/Activity/Treatments Diet: Diet as Tolerated Activity: As tolerated Other treatments: [id number] Tylenol and/or ibuprofen may be used for additional pain relief. [id number] stool softeners and/or MiraLax may used as needed for constipation. Skin/Wound/Dressing Care Report to your healthcare provider any signs of infection, such as:: chills, fever, increased pain, unusual drainage and unusual redness Dressing: N/A Visit Report/Discharge Packet Instructions: DI for Labor and Delivery, Vaginal , DI for and Nipple Soreness Stand Alone Forms: Discharge: Care, Patient Portal/API, Stroke Signs & Symptoms Discharge Data Primary Care Provider: Stephani Porter
[2025-02-08 14:17] VITALS: BP 115/74; PULSE 90; RESP 14; TEMP 36.9
== END 2025-02-08 13:55 | disposition home or self-care (01) | DRG 807 ==
PROVIDERS: Admitting Provider Obstetrics & Gynecology; PCP Registered Nurse; Referring Provider Obstetrics & Gynecology; Visit Provider Obstetrics & Gynecology
DX: O42.113 Preterm premature rupture of membranes, onset of labor more than 24 hours following rupture, third trimester (principal); Z37.0 Single live birth; Z67.40 Type O blood, Rh positive; O76 Abnormality in fetal heart rate and rhythm complicating labor and delivery; O70.1 Second degree perineal laceration during delivery; O99.334 Smoking (tobacco) complicating childbirth; F17.200 Nicotine dependence, unspecified, uncomplicated; Z3A.36 36 weeks gestation of pregnancy
CPT/HCPCS: 36415; 59050; 59409; 85025; 86850; 86900; 86901; G0379; J2405; J2590; J3010